=== PATIENT | female | born 1980 | race Caucasian/White ===

== ENCOUNTER 2017-11-13 14:55 | Emergency (ER) | payer MEDICARE, OTHER ==
--- NOTE | 2017-11-13 15:16 | PDOC ---
Rapid Medical Evaluation Time Seen by Provider: 11/13/17 15:14 Medical Evaluation: 11/13/17 15:15 I have performed a brief in person evaluation of this patient. The patient presents with chief complaint of : fever, ear pain and sore throat since yesterday . 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
[2017-11-13 15:19] VITALS: BP 120/77; PULSE 101; TEMP 98.8; BMI 36.0
--- NOTE | 2017-11-13 16:34 | PDOC ---
History of Present Illness - General Chief Complaint: Cold Symptoms Stated Complaint: sore throat Time Seen by Provider: 11/13/17 15:14 History Source: Patient Exam Limitations: No Limitations - History of Present Illness Initial Comments: 11/13/17 16:46 37 year old female presents to the ED with complaints of sore throat, fever, myalgia, and headache. Patient states symptoms began yesterday and took nothing for the above but decided come to the ER for further evaluation. Patient denies recent travel, recent illness, resolving, chest pain, difficulty breathing or cough. Timing/Duration: reports: yesterday Severity: reports: moderate Possible Cause: Yes: no prior episodes Associated Symptoms: reports: fever/chills, headache, sore throat Past History - Past Medical History Allergies/Adverse Reactions: Allergies Allergy/AdvReac Type Severity Reaction Status Date / Time No Known Allergies Allergy Verified 11/13/17 15:16 Home Medications: Ambulatory Orders NK [No Known Home Medication] 11/13/17 COPD: No Other medical history: DENIES. - Suicide/Smoking/Psychosocial Hx Smoking History: Never smoked Patient Lives Alone: No Lives with/in: spouse/SO Review of Systems - Review of Systems Able to Perform ROS?: Yes Constitutional: No: Symptoms Reported HEENTM: Yes: Symptoms Reported, Throat Pain, Difficulty Swallowing Respiratory: No: Symptoms reported Cardiac (ROS): No: Symptoms Reported ABD/GI: No: Symptoms Reported : No: Symptoms Reported Musculoskeletal: No: Symptoms Reported Integumentary: No: Symptoms Reported Neurological: Yes: Headache Endocrine: No: Symptoms Reported Hematologic/Lymphatic: No: Symptoms Reported *Physical Exam - Vital Signs Last Vital Signs Temp Pulse Resp BP Pulse Ox 98.8 F 101 H 19 120/77 97 11/13/17 15:16 11/13/17 15:16 11/13/17 15:16 11/13/17 15:16 11/13/17 15:16 - Physical Exam General Appearance: Yes: Nourished, Appropriately Dressed. No: Apparent Distress HEENT: positive: EOMI, BRAYDEN, Pharyngeal Erythema, Tonsillar Exudate, Tonsillar Erythema (3 + bilateral). negative: Pale Conjunctivae Neck: positive: Supple Respiratory/Chest: positive: Lungs Clear, Normal Breath Sounds. negative: Respiratory Distress, Accessory Muscle Use Cardiovascular: positive: Regular Rhythm, Tachycardia. negative: Murmur Gastrointestinal/Abdominal: positive: Soft Integumentary: positive: Normal Color, Warm, Moist Neurologic: positive: Motor Strength 5/5 (ambulatory) ED Treatment Course - ADDITIONAL ORDERS Additional order review: 11/13/17 15:16 Influenza Types A,B Antigen (ELVIRA) - Final Nasopharyngeal Swab - Final 11/13/17 15:19 Group A Strep Rapid Antigen - Final Throat Medical Decision Making - Medical Decision Making 11/13/17 16:49 Pt with sore throat, yulia, and myalgia. Rapid strep and influenza sent. Strep +. Discharge home with zpak. Motrin given in fast track *DC/Admit/Observation/Transfer Diagnosis at time of Disposition: Strep throat - Discharge Dispostion Disposition: HOME Condition at time of disposition: Good - Referrals - Patient Instructions Printed Discharge Instructions: DI for Strep Throat Additional Instructions: Please take antibiotics as prescribed until completed. Please take Motrin for discomfort. Continue to push fluids and rest. - Post Discharge Activity
[2017-11-13] MEDS ORDERED: IBUPROFEN 600 MG TABLET (FP) PO ONE ×2 (16:46→16:56)
== END 2017-11-13 16:58 | disposition home or self-care (01) ==
LOC: JERFT 14:55
DX: J02.0 Streptococcal pharyngitis (principal); B95.0 Streptococcus, group A, as the cause of diseases classified elsewhere
CPT/HCPCS: 87070; 87430; 87804; 99281-25

== ENCOUNTER 2017-11-22 20:28 | Emergency (ER) | payer OTHER ==
[2017-11-22 20:45] VITALS: TEMP 97.5; BMI 37.8
--- NOTE | 2017-11-22 21:53 | PDOC ---
History of Present Illness - General History Source: Patient Exam Limitations: No Limitations - History of Present Illness Initial Comments: 11/22/17 23:20 Patient is a 37 year old female with a significant past medical history of Pre- Diabetes, who presents to the ED with complaints of upper abdominal pain that began 1 hour prior to ED arrival. Patient reports working today when she suddenly began to experience upper abdominal pain prompting her to come into the ED for further evaluation. She reports pain is a sharp non radiating pain that has increases intermittently. Patient reports feeling this pain once before and was told it was an ulcer. She reports experiencing 1 episode of vomiting and 2 episodes of diarrhea. Denies chest pain, Sob. Denies fevers, chills. Denies contact with sick individuals, out of state travelling. Denies any other symptoms. Allergies: None Social history: No smoking. No alcohol. No illicit drugs. Surgical history: None PMD: None <Tyrell Trevino - Last Filed: 11/22/17 23:19> <Tasha Lundy - Last Filed: 11/23/17 02:12> - General Chief Complaint: Pain Stated Complaint: ABSOMINAL PAIN Time Seen by Provider: 11/22/17 20:57 Past History <Tyrell Trevino - Last Filed: 11/22/17 23:19> - Past Medical History COPD: No - Suicide/Smoking/Psychosocial Hx Smoking History: Never smoked Have you smoked in the past 12 months: No Information on smoking cessation initiated: No Hx Alcohol Use: No Drug/Substance Use Hx: No <Tasha Lundy - Last Filed: 11/23/17 02:12> - Past Medical History Allergies/Adverse Reactions: Allergies Allergy/AdvReac Type Severity Reaction Status Date / Time No Known Allergies Allergy Verified 11/22/17 20:44 Home Medications: Ambulatory Orders NK [No Known Home Medication] 11/22/17 Review of Systems - Review of Systems Able to Perform ROS?: Yes Comments:: 11/22/17 23:20 GENERAL/CONSTITUTIONAL: No fever or chills. No weakness. HEAD, EYES, EARS, NOSE AND THROAT: No change in vision. No ear pain or discharge. No sore throat. CARDIOVASCULAR: No chest pain or shortness of breath. RESPIRATORY: No cough, wheezing, or hemoptysis. GASTROINTESTINAL: +Epigastric pain. No constipation. GENITOURINARY: No dysuria, frequency, or change in urination. MUSCULOSKELETAL: No joint or muscle swelling or pain. No neck or back pain. SKIN: No rash NEUROLOGIC: No headache, vertigo, loss of consciousness, or change in strength/ sensation. ENDOCRINE: No increased thirst. No abnormal weight change. HEMATOLOGIC/LYMPHATIC: No anemia, easy bleeding, or history of blood clots. ALLERGIC/IMMUNOLOGIC: No hives or skin allergy. All Other Systems: Reviewed and Negative <Tyrell Trevino - Last Filed: 11/22/17 23:19> *Physical Exam - Vital Signs Last Vital Signs Temp Pulse Resp BP Pulse Ox 97.5 F L 74 14 124/74 98 11/22/17 20:44 11/22/17 20:44 11/22/17 20:44 11/22/17 20:44 11/22/17 20:44 - Physical Exam Comments: 11/22/17 23:20 GENERAL: Awake, alert, and fully oriented, in no acute distress HEAD: No signs of trauma EYES: PERRLA, EOMI, sclera anicteric, conjunctiva clear ENT: Auricles normal inspection, hearing grossly normal, nares patent, oropharynx clear without exudates. Moist mucosa NECK: Normal ROM, supple, no lymphadenopathy, JVD, or masses LUNGS: Breath sounds equal, clear to auscultation bilaterally. No wheezes, and no crackles HEART: Regular rate and rhythm, normal S1 and S2, no murmurs, rubs or gallops ABDOMEN: Soft, nontender, normoactive bowel sounds. No guarding, no rebound. No masses EXTREMITIES: Normal range of motion, no edema. No clubbing or cyanosis. No cords, erythema, or tenderness NEUROLOGICAL: Cranial nerves II through XII grossly intact. Normal speech, normal gait SKIN: Warm, Dry, normal turgor, no rashes or lesions noted. <Tyrell Trevino - Last Filed: 11/22/17 23:19> - Vital Signs Last Vital Signs Temp Pulse Resp BP Pulse Ox 97.5 F L 74 14 124/74 98 11/22/17 20:44 11/22/17 20:44 11/22/17 20:44 11/22/17 20:44 11/22/17 20:44 <Tasha Lundy - Last Filed: 11/23/17 02:12> ED Treatment Course - LABORATORY CBC & Chemistry Diagram: 11/22/17 22:20 11/22/17 22:20 - ADDITIONAL ORDERS Additional order review: Laboratory Results 11/22/17 11/22/17 22:30 22:20 Sodium 137 Potassium 4.1 Chloride 102 Carbon Dioxide 27 Anion Gap 8 BUN 13 Creatinine 0.7 Creat Clearance w eGFR > 60 Random Glucose 115 H Calcium 8.5 Total Bilirubin 0.5 AST 200 H ALT 137 H Alkaline Phosphatase 125 H Total Protein 7.7 Albumin 3.7 Total Amylase 71 Lipase 180 Urine Color Yellow Urine Appearance Clear Urine pH 5.0 Ur Specific [place] 1.024 Urine Protein Negative Urine Glucose (UA) Negative Urine Ketones Negative Urine Blood Negative Urine Nitrite Negative Urine Bilirubin Negative Urine Urobilinogen 2.0 H Ur Leukocyte Esterase Negative 11/22/17 22:20 RBC 5.29 H MCV 78.0 L MCHC 33.0 RDW 13.8 MPV 8.3 Neutrophils % 84.0 H Lymphocytes % 11.8 Monocytes % 3.6 L Eosinophils % 0.3 Basophils % 0.3 - Medications Given in the ED: ED Medications Discontinued Medications Generic Name Dose Route Start Last Admin Trade Name Sheldonq PRN Reason Stop Dose Admin Al Hydroxide/Mg Hydroxide 30 ml 11/22/17 21:55 11/22/17 22:06 Mylanta Oral Suspension - PO 11/22/17 21:56 30 ml ONCE ONE Administration Ranitidine HCl 300 mg 11/22/17 21:55 11/22/17 22:06 Zantac - PO 11/22/17 21:56 300 mg ONCE ONE Administration <Tyrell Trevino - Last Filed: 11/22/17 23:19> - LABORATORY CBC & Chemistry Diagram: 11/22/17 22:20 11/22/17 22:20 <Tasha Lundy - Last Filed: 11/23/17 02:12> Medical Decision Making - Medical Decision Making 11/22/17 23:14 Pt has elevated WBC count. She also has elevated LFTs; but her Total Bili is WNL. Pt is afebrile. Earlier she was writhing in pain; now with no pain despite no pain meds being given.. Lipase is WNL also. Pt is awaiting US abdomen. 11/23/17 01:58 Patient Name: EZEKIEL ROBINS THIS IS A PRELIMINARY REPORT FROM [facility] DATE OF SERVICE: 2017-11-22 23:16:43 IMAGES: 52 EXAM: ULTRASOUND ABDOMEN INCOMPLETE Dilated gallbladder containing mutliple mobile stones. No wall thickening, pericholecystic fluid or sonographic Haq's sign to suggest acute cholecystitis. Unremarkable liver, right kidney and visualized aorta and pancreas. Normal common duct diameter, 5 mm. THIS DOCUMENT HAS BEEN ELECTRONICALLY SIGNED pT WILL BE ASKED TO FOLLOW WITH SURGERY AN OUTPATIENT FOR ELECTIVE REMOVAL OF HER GB <Tasha Lundy - Last Filed: 11/23/17 02:12> *DC/Admit/Observation/Transfer - Attestations Scribe Attestion: 11/22/17 23:20 Documentation prepared by Tyrell Trevino, acting as medical file clerk for Tasha Lundy MD/DO. <Tyrell Trevino - Last Filed: 11/22/17 23:19> - Discharge Dispostion Admit: No <Tasha Lundy - Last Filed: 11/23/17 02:12> Diagnosis at time of Disposition: Gallstones without obstruction of gallbladder - Discharge Dispostion Disposition: HOME Condition at time of disposition: Stable - Referrals Referrals: Epifanio Narayan MD [Staff Physician] - - Patient Instructions Printed Discharge Instructions: Eating a Diet Low in Saturated Fat, Trans Fat, and Cholesterol, Gallstones Print Language: MALIAN
[2017-11-22] MEDS ORDERED: MAG HYDROX/AL HYDROX/SIMETH 30 ML UNIT-DOSE CUP PO ONE (21:55)
[2017-11-22] MEDS ORDERED: RANITIDINE HCL 150 MG TABLET (FP) PO ONE (21:55)
[2017-11-22] MEDS ORDERED: RANITIDINE HCL 150 MG TABLET (FP) ONE (22:01)
[2017-11-22] MEDS ORDERED: MAG HYDROX/AL HYDROX/SIMETH 30 ML UNIT-DOSE CUP ONE (22:01)
[2017-11-22 22:28] LABS: BASO % 0.3 % (0-2.0); EOS % 0.3 % (0-4.5); HEMATOCRIT 41.3 % (32.4-45.2); HEMOGLOBIN 13.6 GM/dL (10.7-15.3); LYMPH % 11.8 % (8-40); MCH 25.8 pg (25.7-33.7); MEAN PLT VOLUME 8.3 fl (7.5-11.1); MONO % 3.6 % (3.8-10.2); PLATELET COUNT 337 K/MM3 (134-434); RBC 5.29 M/mm3 (3.60-5.2); RDW 13.8 % (11.6-15.6); WHITE BLOOD COUNT 21.9 K/mm3 (4.0-10.0)
[2017-11-22 22:48] LABS: URINE APPEARANCE CLEAR; URINE BILIRUBIN NEGATIVE (NEGATIVE); URINE BLOOD NEGATIVE (NEGATIVE); URINE COLOR YELLOW; URINE GLUCOSE (UA) NEGATIVE (NEGATIVE); URINE KETONE NEGATIVE (NEGATIVE); URINE LEUK ESTERASE NEGATIVE (NEGATIVE); URINE NITRITE NEGATIVE (NEGATIVE); URINE PROTEIN NEGATIVE (NEGATIVE)
[2017-11-22 23:06] LABS: ALBUMIN 3.7 g/dl (3.4-5.0); ALK PHOS 125 U/L (45-117); AMYLASE 71 U/L (25-115); ANION GAP 8 (8-16); BILIRUBIN,TOTAL 0.5 mg/dL (0.2-1.0); BLOOD UREA NITROGEN 13 mg/dL (7-18); CALCIUM 8.5 mg/dL (8.5-10.1); CHLORIDE 102 mmol/L (98-107); CO2 27 mmol/L (21-32); CREATININE 0.7 mg/dL (0.55-1.02); GLUCOSE,RANDOM 115 mg/dL (74-106); LIPASE 180 U/L (73-393); POTASSIUM 4.1 mmol/L (3.5-5.1); SGOT/AST 200 U/L (15-37); SGPT/ALT 137 U/L (12-78); SODIUM 137 mmol/L (136-145); TOT PROT 7.7 g/dl (6.4-8.2)
[2017-11-23 02:21] VITALS: BP 123/74; PULSE 82
== END 2017-11-23 02:20 | disposition home or self-care (01) ==
LOC: JER 20:28
DX: K80.20 Calculus of gallbladder without cholecystitis without obstruction (principal)
CPT/HCPCS: 36415; 76705-TC; 80053; 81003; 82150; 83690; 85025; 99282-25

== ENCOUNTER 2023-08-15 04:53 | Day surgery (SDC) | payer OTHER ==
[2023-08-13 15:01] VITALS: BMI 41.1
[2023-08-15 12:56] VITALS: TEMP 98.6
[2023-08-15 13:29] VITALS: BP 107/70; PULSE 66; RESP 20
== END 2023-08-15 13:34 | disposition home or self-care (01) ==
LOC: JASU-ENDO 04:53
PROVIDERS: ATTEND Student in an Organized Health Care Education/Training Program
PROC: 0DB78ZX Excision of Stomach, Pylorus, Via Natural or Artificial Opening Endoscopic, Diagnostic (ICD-10-PCS; 2023-08-15)
PROC: 0DB68ZX Excision of Stomach, Via Natural or Artificial Opening Endoscopic, Diagnostic (ICD-10-PCS; 2023-08-15)
PROC: 0DB38ZX Excision of Lower Esophagus, Via Natural or Artificial Opening Endoscopic, Diagnostic (ICD-10-PCS; principal; 2023-08-15 12:15)
DX: K29.50 Unspecified chronic gastritis without bleeding (principal); K31.7 Polyp of stomach and duodenum
CPT/HCPCS: 81025; 88305-TC; 88342-TC

== ENCOUNTER → 2025-04-27 | Day surgery (SDC) | payer OTHER | END | disposition home or self-care (01) | LOC: JRADUS-SUR 09:45 | PROVIDERS: ATTEND Family Medicine | PROC: 0H9T3ZX Drainage of Right Breast, Percutaneous Approach, Diagnostic (ICD-10-PCS; principal; 2025-04-27) | DX: N60.31 Fibrosclerosis of right breast (principal) | CPT/HCPCS: 19083; 76942-TC; 77065-TC; 87899; 88305-TC; A4648 ==